=== PATIENT | male | born 1985 | race Caucasian/White ===

== ENCOUNTER 2020-07-18 21:27 | Emergency (ER) | payer MEDICAID ==
[~2020-07-18] VITALS: Ht 172.7 cm; Wt 99.8 kg
[2020-07-18 21:27] VITALS: BP_SYST 139
[2020-07-18] MEDS ORDERED: SULFAMETHOXAZOLE/TRIMETHOPR DS 1 TABLET PO ONE (23:15)
[2020-07-18] MEDS ORDERED: SULF1TAB48 PO (23:16)
== END 2020-07-18 23:20 | disposition home or self-care (01) ==
LOC: SED 21:27
DX: L03.114 Cellulitis of left upper limb (principal)
CPT/HCPCS: 99283

== ENCOUNTER 2023-05-18 19:28 | Emergency (ER) | payer MEDICAID ==
[~2023-05-18] VITALS: Ht 170.2 cm; Wt 86.2 kg
[~2023-05-18 19:28] MED LIST: SULF1TAB48 PO
[2023-05-18 20:02] VITALS: BP_SYST 135; PULSE 95; RESP 18; TEMP 98.6; O2SAT 96
[2023-05-18] MEDS ORDERED: DOXY100C5 PO (20:32)
== END 2023-05-18 20:45 | disposition home or self-care (01) ==
LOC: SED 19:28
DX: L02.415 Cutaneous abscess of right lower limb (principal); Z79.899 Other long term (current) drug therapy
CPT/HCPCS: 99283

== ENCOUNTER 2023-09-22 14:55 | Emergency (ER) | payer MEDICAID ==
[~2023-09-22] VITALS: Ht 170.2 cm; Wt 89.4 kg
[2023-09-22 14:55] VITALS: BP_SYST 132; PULSE 70; RESP 18; TEMP 97.8; O2SAT 97
[~2023-09-22 14:55] MED LIST changes: +DOXY100C5 PO
[2023-09-22 16:58] LABS: BASOPHILS % (AUTO) 0.5 % (0.0-2.0); EOSINOPHILS # (AUTO) 0.1 K/uL (0.0-0.4); EOSINOPHILS % (AUTO) 0.9 % (0.0-4.0); HEMATOCRIT 48.5 % (36-54); HEMOGLOBIN 16.3 g/dL (14.0-18.0); LYMPHOCYTES # (AUTO) 0.6 K/uL (1.0-5.5); LYMPHOCYTES % (AUTO) 6.5 % (20.5-51.5); MEAN CORPUSCULAR HEMOGLOBIN 31 pg (27-31); MEAN CORPUSCULAR HGB CONC 34 % (32-36); MEAN CORPUSCULAR VOLUME 93 fL (79.0-98.0); MONOCYTES # (AUTO) 0.5 K/uL (0.0-1.0); MONOCYTES % (AUTO) 5.2 % (1.7-9.3); NEUTROPHILS % (AUTO) 86.9 % (40.0-70.0); PLATELET COUNT (AUTO) 242 K/uL (130-430); RED BLOOD CELL COUNT(AUTO) 5.21 MIL/uL (4.2-6.2); RED CELL DISTRIBUTION WIDTH 13.4 % (9.0-15.0); WHITE BLOOD COUNT (AUTO) 9.2 K/uL (4.8-10.8)
[2023-09-22 17:03] VITALS: BP_SYST 130; PULSE 72; RESP 20; TEMP 97.8; O2SAT 96
[2023-09-22 17:09] LABS: INR 1.1 (0.80-1.20); PROTHROMBIN TIME 11.6 SECS (9.5-12.5)
[2023-09-22 17:27] LABS: ALANINE AMINOTRANSFERASE 36 U/L (12-78); ANION GAP 8 (5-15); ASPARTATE AMINOTRANSFERASE 21 U/L (10-37); BILIRUBIN,DIRECT 0.1 mg/dL (0.0-0.3); CALCIUM 9.4 mg/dL (8.4-11.0); CARBON DIOXIDE 30 mmol/L (23-29); CHLORIDE 101 mmol/L (98-107); CREATINE KINASE, TOTAL 71 U/L (39-308); CREATININE 1.03 mg/dL (0.55-1.30); GFR AFRICAN AMERICAN 103 mL/min (>90); GLUCOSE 96 mg/dL (74-106); POTASSIUM 4.7 mmol/L (3.5-5.1); SODIUM SERUM 139 mmol/L (136-145); TOTAL BILIRUBIN 0.6 mg/dL (0.0-1.0); TOTAL PROTEIN, SERUM 8.7 g/dL (6.4-8.3); UREA NITROGEN, BLOOD 10 mg/dL (8-21)
[2023-09-22 17:28] LABS: GFR NON AFRICAN-AMERICAN 85 mL/min (>90)
== END 2023-09-22 17:58 ==
LOC: SED 14:55
DX: R55 Syncope and collapse (principal); R42 Dizziness and giddiness; Z79.899 Other long term (current) drug therapy
CPT/HCPCS: 36415; 70450-TC; 71045; 80048; 80076; 82550; 83605; 84484; 85025; 85610; 85730; 93005; 99285